=== PATIENT | male | born 1985 | race African-American/Black ===

== ENCOUNTER 2020-01-01 12:16 | Emergency (ER) | payer OTHER ==
[~2020-01-01] VITALS: Ht 182.9 cm; Wt 59.0 kg
[2020-01-01] MEDS ORDERED: ZITHROMAX500 MG PO (15:54)
== END 2020-01-01 15:50 | disposition home or self-care (01) ==
LOC: ER 12:16
DX: B33.8 Other specified viral diseases (principal); B96.0 Mycoplasma pneumoniae [M. pneumoniae] as the cause of diseases classified elsewhere

== ENCOUNTER 2020-08-09 15:54 | Outpatient (CLI) | payer OTHER ==
[~2020-08-09 15:54] MED LIST: ZITHROMAX500 MG PO
== END 2020-08-09 15:55 | disposition home or self-care (01) ==
LOC: PPH VACUNA 15:54
DX: Z23 Encounter for immunization (principal)

== ENCOUNTER 2020-11-05 16:16 | Outpatient (CLI) | payer OTHER | END 2020-11-05 18:00 | disposition home or self-care (01) | LOC: PPH VACUNA 16:16 | DX: Z23 Encounter for immunization (principal) ==

== ENCOUNTER → 2021-02-06 | Outpatient (CLI) | payer OTHER ==
[~2021-02-06] MED LIST changes: +KETO10TA2 PO
== END | disposition home or self-care (01) ==
LOC: MRI 13:15
DX: S83.242A Other tear of medial meniscus, current injury, left knee, initial encounter (principal); M25.561 Pain in right knee
CPT/HCPCS: 73721

== ENCOUNTER 2021-02-20 09:43 | Emergency (ER) | payer OTHER ==
[~2021-02-20] VITALS: Ht 182.9 cm; Wt 59.0 kg
[~2021-02-20 09:43] MED LIST changes: -KETO10TA2 PO
[2021-02-20] MEDS ORDERED: KETO10TA2 PO (10:49)
== END 2021-02-20 10:52 ==
LOC: ER 09:43
DX: S93.491A Sprain of other ligament of right ankle, initial encounter (principal); X50.1XXA Overexertion from prolonged static or awkward postures, initial encounter; Y93.89 Activity, other specified; Y92.9 Unspecified place or not applicable; Y99.8 Other external cause status